=== PATIENT | male | born 1940 | race Caucasian/White ===

== ENCOUNTER 2021-11-29 18:14 | Emergency (ER) | payer MEDICARE, BC ==
[2021-11-29 19:04] LABS: ALT (SGPT) 8 U/L (8-55); AST (SGOT) 17 U/L (5-34); Albumin 4.1 g/dL (3.4-4.8); Alkaline Phosphatase 66 U/L (40-110); Anion Gap 15 mmol/L (10-20); BUN (Urea Nitrogen) 22 mg/dL (8.4-25.7); Bilirubin, Total 0.9 mg/dL (0.2-1.2); Calc. Creatinine Clearance 0 mL/min (70-130); Calcium 8.8 mg/dL (7.8-10.44); Carbon Dioxide 22 mmol/L (23-31); Chloride 104 mmol/L (98-107); Estimated GFR 55; Globulin 2.3 g/dL (2.4-3.5); Glucose 118 mg/dL (83-110); Potassium 4.4 mmol/L (3.5-5.1); Protein, Total 6.4 g/dL (5.8-8.1); Sodium 137 mmol/L (136-145)
[2021-11-29] MEDS ORDERED: cefTRIAXone\\ROCEPHIN 2 GM VIAL ONE (19:13)
[2021-11-29 19:28] LABS: Hemoglobin 13.1 g/dL (14.0-18.0); Mean Corpuscular HGB CONC 35.4 g/dL (32.0-36.0); Mean Corpuscular Hemoglobin 33.3 pg (27.0-31.0); Platelet Count 104 thou/uL (130-400); RBC Distribution Width 12.8 % (11.5-14.5); Red Blood Cell (RBC) Count 3.92 mill/uL (4.70-6.10); White Blood Cell (WBC) Count 9.1 thou/uL (4.8-10.8)
[2021-11-29 19:34] LABS: Band 3 % (5-11); Lymphocytes 5 % (21-51); MDiff Complete? YES; Monocytes 14 % (0-10); Neutrophil 78 % (42-75); Platelet Morphology Comment Appears Decreased; RBC Morphology Normal
[2021-11-29 19:44] LABS: Bilirubin Negative (Negative); Blood, Urine Trace (Negative); Clarity Clear (Clear); Glucose, Urine (Dipstick) Negative (Negative); Ketone, Urine Trace mg/dL (Negative); Leukocyte Small (Negative); Nitrite Negative (Negative); Protein, Urine (Dipstick) 30 mg/dL (Neg-Trace); Specific Gravity, Urine 1.025 (1.005-1.030); Urobilinogen 0.2 mg/dL (Less than 2); pH, Urine 5.5 (5.0-9.0)
[2021-11-29 19:46] LABS: Bacteria/HPF 1+ HPF (None Seen); Mucous/LPF 1+ LPF (<2+); RBC/HPF 0-3 HPF (0-3); Squamous Epithelial 0-3 HPF (0-3)
== END 2021-11-29 20:16 | disposition home or self-care (01) ==
LOC: BURERS 18:14
DX: J06.9 Acute upper respiratory infection, unspecified (principal); G20 Parkinson's disease; Z79.899 Other long term (current) drug therapy
CPT/HCPCS: 71045; 80053; 81003; 81015; 83605; 85025; 87040; 87086; 87149; 96365; J0696

== ENCOUNTER 2022-04-09 21:29 | Inpatient (IN) | payer MEDICARE, BC ==
[2022-04-09 22:10] LABS: #Basophils 0.1 thou/uL (0.0-0.2); #Lymphocytes 0.3 thou/uL (1.20-3.40); #Monocytes 0.6 thou/uL (0.11-0.59); #Neutrophils 4.5 thou/uL (1.40-6.50); %Eosinophils 0.3 % (0.0-10.0); %Lymphocytes 4.8 % (21.0-51.0); %Monocytes 11.4 % (0.0-10.0); %Neutrophils 82.6 % (42.0-75.0); Hemoglobin 11.8 g/dL (14.0-18.0); Mean Corpuscular HGB CONC 34.6 g/dL (32.0-36.0); Mean Corpuscular Hemoglobin 32.5 pg (27.0-31.0); Mean Corpuscular Volume 93.8 fl (78.0-98.0); Mean Platelet Volume 6.8 fL (7.4-10.4); Platelet Count 92 10x3/uL (130-400); RBC Distribution Width 12.7 % (11.5-14.5); Red Blood Cell (RBC) Count 3.62 mill/uL (4.70-6.10); White Blood Cell (WBC) Count 5.5 10x3/uL (4.8-10.8)
[2022-04-09] MEDS ORDERED: Ketorolac Tromethamine 30 MG/ML VIAL ONE (22:14)
[2022-04-09 22:17] LABS: ALT (SGPT) 8 U/L (8-55); AST (SGOT) 25 U/L (5-34); Albumin 3.7 g/dL (3.4-4.8); Alkaline Phosphatase 54 U/L (40-110); Anion Gap 15 mmol/L (10-20); BUN (Urea Nitrogen) 22 mg/dL (8.4-25.7); Calc. Creatinine Clearance 0 mL/min (70-130); Calcium 8.3 mg/dL (7.8-10.44); Carbon Dioxide 20 mmol/L (23-31); Chloride 106 mmol/L (98-107); Estimated GFR 54; Globulin 1.9 g/dL (2.4-3.5); Glucose 110 mg/dL (83-110); Potassium 3.7 mmol/L (3.5-5.1); Protein, Total 5.6 g/dL (5.8-8.1); Sodium 137 mmol/L (136-145)
[2022-04-09] MEDS ORDERED: Benzonatate 100 MG CAP ONE (22:58)
[2022-04-10 00:43] VITALS: BMI 31.5
[2022-04-10] MEDS ORDERED: Ondansetron ODT 4 MG TAB SL PRN (00:45)
[2022-04-10] MEDS ORDERED: Ondansetron PF 4 MG/2 ML Vial SLOW IVP PRN (00:45)
[2022-04-10] MEDS ORDERED: Calcium Carbonate 500 MG ChewTAB PO PRN (00:45)
[2022-04-10] MEDS ORDERED: Ketorolac Tromethamine 30 MG/ML VIAL IVP PRN (00:45)
[2022-04-10] MEDS ORDERED: Acetaminophen 650 MG Suppository PR PRN (00:45)
[2022-04-10] MEDS ORDERED: Senokot S 8.6-50 MG TAB PO PRN (00:45)
[2022-04-10] MEDS ORDERED: Benzonatate 100 MG CAP PO PRN ×2 (00:46→06:17)
[2022-04-10] MEDS ORDERED: Ketorolac Tromethamine 30 MG/ML VIAL ONE (04:32)
[2022-04-10 04:36] LABS: Platelet Morphology Comment Appears Decreased
[2022-04-10 06:07] LABS: SARS-CoV-2 NAA Rapid Test Not Detected (NotDetected)
[2022-04-10] MEDS ORDERED: Carbidopa/Levodopa 25-100 mg Tablet PO SCH ×2 (09:00→16:00)
[2022-04-10] MEDS ORDERED: Donepezil HCl 10 MG TAB PO SCH (09:00)
[2022-04-10] MEDS: Acetaminophen 325 MG TAB PO PRN ×2 (10:22→16:23)
[2022-04-10] MEDS: Guaifenesin DM 100-10/5 ML UDCUP PO PRN ×2 (10:36→20:04)
[2022-04-10] MEDS: Sodium Chloride 0.9% 1,000 ML IV SCH ×2 (11:08→16:00)
[2022-04-10] MEDS: Carbidopa/Levodopa 25-100 mg Tablet PO SCH ×2 (16:13→20:04)
[2022-04-10] MEDS: Oseltamivir 75 MG CAP PO SCH (20:04)
[2022-04-11] MEDS: Carbidopa/Levodopa CR 50-200 mg Tablet PO SCH (00:44)
[2022-04-11] MEDS: Rosuvastatin 10 MG TAB PO SCH (00:48)
[2022-04-11 05:50] LABS: Anion Gap 12 mmol/L (10-20); BUN (Urea Nitrogen) 17 mg/dL (8.4-25.7); Calc. Creatinine Clearance 83 mL/min (70-130); Calcium 8.4 mg/dL (7.8-10.44); Carbon Dioxide 23 mmol/L (23-31); Chloride 105 mmol/L (98-107); Estimated GFR 75; Glucose 91 mg/dL (83-110); Sodium 136 mmol/L (136-145)
[2022-04-11 06:07] LABS: Hemoglobin 12.1 g/dL (14.0-18.0); Mean Corpuscular HGB CONC 33.9 g/dL (32.0-36.0); Mean Corpuscular Hemoglobin 32.2 pg (27.0-31.0); Mean Corpuscular Volume 94.8 fl (78.0-98.0); Mean Platelet Volume 7.4 fL (7.4-10.4); Platelet Count 86 10x3/uL (130-400); RBC Distribution Width 12.7 % (11.5-14.5); Red Blood Cell (RBC) Count 3.75 mill/uL (4.70-6.10); White Blood Cell (WBC) Count 5.3 10x3/uL (4.8-10.8)
[2022-04-11] MEDS: Levothyroxine Sodium 50 MCG TAB PO SCH (06:16)
[2022-04-11 06:54] LABS: Band 14 % (5-11); Lymphocytes 15 % (21-51); MDiff Complete? YES; Monocytes 7 % (0-10); Neutrophil 64 % (42-75); RBC Morphology Normal
[2022-04-11] MEDS: Acetaminophen 325 MG TAB PO PRN ×3 (07:21→15:29)
[2022-04-11] MEDS: Carbidopa/Levodopa 25-100 mg Tablet PO SCH ×4 (07:22→20:24)
[2022-04-11] MEDS: Donepezil HCl 10 MG TAB PO SCH (08:30)
[2022-04-11] MEDS: Oseltamivir 75 MG CAP PO SCH ×2 (08:31→20:24)
[2022-04-11] MEDS ORDERED: Nystatin Cream 15 GM TUBE TOP SCH (09:15)
[2022-04-11] MEDS: Albuterol Sulfate 2.5 mg/3 ml Neb NEB SCH ×4 (09:26→22:35)
[2022-04-11] MEDS: Sodium Chloride 0.9% 1,000 ML IV SCH ×2 (11:25→17:49)
[2022-04-11] MEDS ORDERED: Enoxaparin Sodium 40 MG/0.4 ML SYRINGE SC SCH (11:30)
[2022-04-11] MEDS: Guaifenesin DM 100-10/5 ML UDCUP PO PRN (12:01)
[2022-04-11 13:31] LABS: Bilirubin Negative (Negative); Blood, Urine Negative (Negative); Clarity Clear (Clear); Glucose, Urine (Dipstick) Negative (Negative); Ketone, Urine 15 mg/dL (Negative); Leukocyte Trace (Negative); Nitrite Negative (Negative); Protein, Urine (Dipstick) 30 mg/dL (Neg-Trace); Urobilinogen 0.2 mg/dL (Less than 2); pH, Urine 5.5 (5.0-9.0)
[2022-04-11 14:05] LABS: RBC/HPF None Seen HPF (0-3); Squamous Epithelial None Seen HPF (0-3); WBC/HPF 0-3 HPF (0-3)
[2022-04-11 14:06] LABS: Bacteria/HPF 1+ HPF (None Seen); Urine Culture Reflex Yes Yes
[2022-04-11] MEDS: Nystatin Cream 15 GM TUBE TOP SCH (20:23)
[2022-04-12] MEDS: Carbidopa/Levodopa CR 50-200 mg Tablet PO SCH ×2 (00:20→23:36)
[2022-04-12] MEDS: Rosuvastatin 10 MG TAB PO SCH ×2 (00:20→23:35)
[2022-04-12] MEDS: Sodium Chloride 0.9% 1,000 ML IV SCH ×3 (00:27→13:59)
[2022-04-12] MEDS: Levothyroxine Sodium 50 MCG TAB PO SCH (05:16)
[2022-04-12] MEDS: Albuterol Sulfate 2.5 mg/3 ml Neb NEB SCH ×2 (05:16→09:32)
[2022-04-12] MEDS: Acetaminophen 325 MG TAB PO PRN ×2 (07:06→20:06)
[2022-04-12] MEDS: Carbidopa/Levodopa 25-100 mg Tablet PO SCH ×4 (07:09→20:07)
[2022-04-12] MEDS: Guaifenesin DM 100-10/5 ML UDCUP PO PRN (07:09)
[2022-04-12] MEDS: Donepezil HCl 10 MG TAB PO SCH (07:10)
[2022-04-12] MEDS: Oseltamivir 75 MG CAP PO SCH ×2 (09:17→20:06)
[2022-04-12] MEDS: Enoxaparin Sodium 40 MG/0.4 ML SYRINGE SC SCH (09:18)
[2022-04-12] MEDS: Nystatin Cream 15 GM TUBE TOP SCH ×2 (09:18→20:04)
[2022-04-12] MEDS ORDERED: Benzonatate 100 MG CAP PO PRN (13:35)
[2022-04-12] MEDS ORDERED: Oseltamivir 75 MG CAP ONE (19:58)
[2022-04-13] MEDS: Sodium Chloride 0.9% 1,000 ML IV SCH ×2 (00:02→09:27)
[2022-04-13 01:54] VITALS: BP 162/70; TEMP 98.7
[2022-04-13] MEDS: Levothyroxine Sodium 50 MCG TAB PO SCH (05:43)
[2022-04-13] MEDS: Acetaminophen 325 MG TAB PO PRN (05:47)
[2022-04-13] MEDS: Carbidopa/Levodopa 25-100 mg Tablet PO SCH ×2 (07:36→12:48)
[2022-04-13] MEDS: Donepezil HCl 10 MG TAB PO SCH (07:36)
[2022-04-13] MEDS ORDERED: Fluconazole 100 MG TAB PO SCH (09:00)
[2022-04-13] MEDS ORDERED: FLU VACC QS2022-23(65YR UP)/PF 240 MCG/0.7 ML SYRINGE IM ONE (09:00)
[2022-04-13] MEDS ORDERED: Oseltamivir 75 MG CAP ONE (09:18)
[2022-04-13] MEDS: Enoxaparin Sodium 40 MG/0.4 ML SYRINGE SC SCH (09:24)
[2022-04-13] MEDS: Oseltamivir 75 MG CAP PO SCH (09:24)
[2022-04-13] MEDS: Nystatin Cream 15 GM TUBE TOP SCH (09:25)
== END 2022-04-13 13:43 | disposition swing bed (61) | DRG 57 ==
LOC: BURERS 21:29 → OBSVTOIN 23:16 → INTOOBSV 23:16 → BURMED 23:16 → UNDOADMOB 23:16
PROVIDERS: ADMIT Family Medicine; ATTEND Nurse Practitioner
DX: G20 Parkinson's disease (principal); J10.1 Influenza due to other identified influenza virus with other respiratory manifestations; Z20.822 Contact with and (suspected) exposure to COVID-19; E86.0 Dehydration; I49.5 Sick sinus syndrome; B37.42 Candidal balanitis; Z91.041 Radiographic dye allergy status; Z79.899 Other long term (current) drug therapy; Z79.890 Hormone replacement therapy; Z95.0 Presence of cardiac pacemaker; Z85.820 Personal history of malignant melanoma of skin
CPT/HCPCS: 36415; 71045; 80048; 80053; 81001; 83605; 85025; 87086; 87804; 96374; J1650; J1885; J7050; J7611; J7620; U0002

== ENCOUNTER 2022-04-13 10:19 | Inpatient (IN) | payer MEDICARE, BC ==
[2022-04-13] MEDS ORDERED: Benzonatate 100 MG CAP PO PRN (15:51)
[2022-04-13] MEDS ORDERED: Calcium Carbonate 500 MG ChewTAB PO PRN (15:51)
[2022-04-13] MEDS ORDERED: Ondansetron ODT 4 MG TAB SL PRN (15:51)
[2022-04-13] MEDS ORDERED: Acetaminophen 650 MG Suppository PR PRN (15:51)
[2022-04-13] MEDS ORDERED: [UNRECOGNIZED DRUG - OTHER] IV SCH (16:00)
[2022-04-13] MEDS ORDERED: SODIUM CHLORIDE 0.9% IV SCH (16:00)
[2022-04-13] MEDS: Sodium Chloride 0.9% 1,000 ML IV SCH (16:40)
[2022-04-13] MEDS ORDERED: Carbidopa/Levodopa 25-100 mg Tablet PO SCH (17:00)
[2022-04-13 17:54] VITALS: BMI 31.4
[2022-04-13] MEDS: Carbidopa/Levodopa 25-100 mg Tablet PO SCH (20:18)
[2022-04-13] MEDS ORDERED: Carbidopa/Levodopa CR 50-200 mg Tablet PO SCH (21:00)
[2022-04-13] MEDS ORDERED: Oseltamivir 75 MG CAP PO SCH (21:00)
[2022-04-13] MEDS: Nystatin Cream 15 GM TUBE TOP SCH (21:25)
[2022-04-13] MEDS: Carbidopa/Levodopa CR 50-200 mg Tablet PO SCH (23:15)
[2022-04-14] MEDS: Sodium Chloride 0.9% 1,000 ML IV SCH (02:40)
[2022-04-14] MEDS: Acetaminophen 325 MG TAB PO PRN (04:46)
[2022-04-14 05:33] LABS: Anion Gap 12 mmol/L (10-20); BUN (Urea Nitrogen) 5 mg/dL (8.4-25.7); Carbon Dioxide 21 mmol/L (23-31); Potassium 3.9 mmol/L (3.5-5.1)
[2022-04-14 05:41] LABS: Hemoglobin 10.9 g/dL (14.0-18.0); Mean Corpuscular HGB CONC 35.7 g/dL (32.0-36.0); Mean Corpuscular Volume 92.4 fl (78.0-98.0); Mean Platelet Volume 7.2 fL (7.4-10.4); Platelet Count 94 10x3/uL (130-400); RBC Distribution Width 12.8 % (11.5-14.5); Red Blood Cell (RBC) Count 3.32 mill/uL (4.70-6.10); White Blood Cell (WBC) Count 2.9 10x3/uL (4.8-10.8)
[2022-04-14 06:32] LABS: Band 2 % (5-11); Eosinophils 1 % (0-10); Lymphocytes 27 % (21-51); MDiff Complete? YES; Monocytes 9 % (0-10); Neutrophil 59 % (42-75); Platelet Morphology Comment Appears Decreased; RBC Morphology Normal; Reactive Lymphocytes 2 % (0-10)
[2022-04-14 06:45] LABS: Calc. Creatinine Clearance 107 mL/min (70-130); Chloride 109 mmol/L (98-107); Estimated GFR 90; Glucose 110 mg/dL (83-110); Sodium 138 mmol/L (136-145)
[2022-04-14] MEDS: Carbidopa/Levodopa 25-100 mg Tablet PO SCH ×4 (07:55→20:32)
[2022-04-14] MEDS: Donepezil HCl 10 MG TAB PO SCH (07:55)
[2022-04-14] MEDS: Rosuvastatin 10 MG TAB PO SCH (09:50)
[2022-04-14] MEDS: Senokot S 8.6-50 MG TAB PO PRN (09:50)
[2022-04-14] MEDS: Levothyroxine Sodium 50 MCG TAB PO SCH (09:50)
[2022-04-14] MEDS: Enoxaparin Sodium 40 MG/0.4 ML SYRINGE SC SCH (09:50)
[2022-04-14] MEDS: Fluconazole 100 MG TAB PO SCH (09:50)
[2022-04-14] MEDS: Nystatin Cream 15 GM TUBE TOP SCH (09:51)
[2022-04-14] MEDS: Carbidopa/Levodopa CR 50-200 mg Tablet PO SCH (23:53)
[2022-04-15] MEDS: Acetaminophen 325 MG TAB PO PRN ×2 (00:01→11:20)
[2022-04-15] MEDS: Nystatin Cream 15 GM TUBE TOP SCH ×3 (00:04→21:20)
[2022-04-15 05:37] LABS: #Eosinphils 0.1 thou/uL (0.0-0.7); #Lymphocytes 0.7 thou/uL (1.20-3.40); #Monocytes 0.4 thou/uL (0.11-0.59); %Basophils 0.9 % (0.0-1.0); %Eosinophils 2.1 % (0.0-10.0); %Lymphocytes 22.4 % (21.0-51.0); %Monocytes 12.1 % (0.0-10.0); %Neutrophils 62.5 % (42.0-75.0); Hemoglobin 11.3 g/dL (14.0-18.0); Mean Corpuscular HGB CONC 34.6 g/dL (32.0-36.0); Mean Corpuscular Hemoglobin 32.1 pg (27.0-31.0); Mean Corpuscular Volume 92.8 fl (78.0-98.0); Mean Platelet Volume 7.4 fL (7.4-10.4); Platelet Count 111 10x3/uL (130-400); RBC Distribution Width 12.4 % (11.5-14.5); Red Blood Cell (RBC) Count 3.52 mill/uL (4.70-6.10); White Blood Cell (WBC) Count 3.2 10x3/uL (4.8-10.8)
[2022-04-15] MEDS: Carbidopa/Levodopa 25-100 mg Tablet PO SCH ×4 (10:25→21:20)
[2022-04-15] MEDS: Rosuvastatin 10 MG TAB PO SCH (10:27)
[2022-04-15] MEDS: Levothyroxine Sodium 50 MCG TAB PO SCH (10:35)
[2022-04-15] MEDS: Enoxaparin Sodium 40 MG/0.4 ML SYRINGE SC SCH (10:36)
[2022-04-15] MEDS: Donepezil HCl 10 MG TAB PO SCH (11:20)
[2022-04-15] MEDS: Fluconazole 100 MG TAB PO SCH (11:20)
[2022-04-15] MEDS: Carbidopa/Levodopa CR 50-200 mg Tablet PO SCH (21:20)
[2022-04-16] MEDS: Carbidopa/Levodopa CR 50-200 mg Tablet PO SCH (00:42)
[2022-04-16 05:27] LABS: #Eosinphils 0.1 thou/uL (0.0-0.7); #Lymphocytes 0.8 thou/uL (1.20-3.40); #Monocytes 0.5 thou/uL (0.11-0.59); #Neutrophils 2.5 thou/uL (1.40-6.50); %Basophils 1.2 % (0.0-1.0); %Eosinophils 2.4 % (0.0-10.0); %Monocytes 12.6 % (0.0-10.0); %Neutrophils 62.8 % (42.0-75.0); Hemoglobin 11.8 g/dL (14.0-18.0); Mean Corpuscular HGB CONC 34.2 g/dL (32.0-36.0); Mean Corpuscular Hemoglobin 31.9 pg (27.0-31.0); Mean Corpuscular Volume 93.2 fl (78.0-98.0); Mean Platelet Volume 6.8 fL (7.4-10.4); Platelet Count 159 10x3/uL (130-400); RBC Distribution Width 12.9 % (11.5-14.5); Red Blood Cell (RBC) Count 3.71 mill/uL (4.70-6.10); White Blood Cell (WBC) Count 3.9 10x3/uL (4.8-10.8)
[2022-04-16 05:54] LABS: Platelet Morphology Comment Appears Decreased
[2022-04-16] MEDS: Enoxaparin Sodium 40 MG/0.4 ML SYRINGE SC SCH (08:43)
[2022-04-16] MEDS: Donepezil HCl 10 MG TAB PO SCH (08:44)
[2022-04-16] MEDS: Levothyroxine Sodium 50 MCG TAB PO SCH (08:44)
[2022-04-16] MEDS: Carbidopa/Levodopa 25-100 mg Tablet PO SCH ×4 (08:45→20:43)
[2022-04-16] MEDS: Rosuvastatin 10 MG TAB PO SCH (08:46)
[2022-04-16] MEDS: Fluconazole 100 MG TAB PO SCH (08:47)
[2022-04-16] MEDS: Nystatin Cream 15 GM TUBE TOP SCH (08:56)
[2022-04-16] MEDS ORDERED: Nystatin Powder 15 GM BOT TOP SCH (14:30)
[2022-04-16] MEDS: Nystatin Powder 15 GM BOT TOP SCH (20:44)
[2022-04-17] MEDS: Carbidopa/Levodopa CR 50-200 mg Tablet PO SCH (00:01)
[2022-04-17] MEDS: Acetaminophen 325 MG TAB PO PRN ×2 (05:20→20:11)
[2022-04-17] MEDS: Rosuvastatin 10 MG TAB PO SCH (08:31)
[2022-04-17] MEDS: Levothyroxine Sodium 50 MCG TAB PO SCH (08:31)
[2022-04-17] MEDS: Carbidopa/Levodopa 25-100 mg Tablet PO SCH ×4 (08:36→20:11)
[2022-04-17] MEDS: Donepezil HCl 10 MG TAB PO SCH (08:37)
[2022-04-17] MEDS: Fluconazole 100 MG TAB PO SCH (08:37)
[2022-04-17] MEDS: Nystatin Powder 15 GM BOT TOP SCH ×2 (11:47→20:11)
[2022-04-18] MEDS: Carbidopa/Levodopa CR 50-200 mg Tablet PO SCH ×2 (00:05→23:38)
[2022-04-18] MEDS: Acetaminophen 325 MG TAB PO PRN (05:31)
[2022-04-18] MEDS: Fluconazole 100 MG TAB PO SCH (08:07)
[2022-04-18] MEDS: Rosuvastatin 10 MG TAB PO SCH (08:08)
[2022-04-18] MEDS: Donepezil HCl 10 MG TAB PO SCH (08:08)
[2022-04-18] MEDS: Carbidopa/Levodopa 25-100 mg Tablet PO SCH ×4 (08:09→19:59)
[2022-04-18] MEDS: Nystatin Powder 15 GM BOT TOP SCH ×2 (08:10→19:59)
[2022-04-18] MEDS: Levothyroxine Sodium 50 MCG TAB PO SCH (08:10)
[2022-04-19] MEDS: Acetaminophen 325 MG TAB PO PRN (04:49)
[2022-04-19] MEDS: Rosuvastatin 10 MG TAB PO SCH (08:26)
[2022-04-19] MEDS: Carbidopa/Levodopa 25-100 mg Tablet PO SCH ×4 (08:27→20:02)
[2022-04-19] MEDS: Levothyroxine Sodium 50 MCG TAB PO SCH (08:28)
[2022-04-19] MEDS: Fluconazole 100 MG TAB PO SCH (08:28)
[2022-04-19] MEDS: Nystatin Powder 15 GM BOT TOP SCH ×2 (08:28→20:02)
[2022-04-19] MEDS: Donepezil HCl 10 MG TAB PO SCH (08:28)
[2022-04-19] MEDS: Senokot S 8.6-50 MG TAB PO PRN (16:18)
[2022-04-19] MEDS: Carbidopa/Levodopa CR 50-200 mg Tablet PO SCH (23:47)
[2022-04-20] MEDS: Rosuvastatin 10 MG TAB PO SCH (08:25)
[2022-04-20] MEDS: Carbidopa/Levodopa 25-100 mg Tablet PO SCH ×3 (08:26→16:20)
[2022-04-20] MEDS: Levothyroxine Sodium 50 MCG TAB PO SCH (08:27)
[2022-04-20] MEDS: Donepezil HCl 10 MG TAB PO SCH (08:28)
[2022-04-20] MEDS: Fluconazole 100 MG TAB PO SCH (08:28)
[2022-04-20] MEDS: Nystatin Powder 15 GM BOT TOP SCH (08:29)
[2022-04-20 17:05] VITALS: BP 146/77; TEMP 98.1
== END 2022-04-20 18:26 | disposition home or self-care (01) | DRG 948 ==
LOC: BURMED 13:45
PROVIDERS: ADMIT Family Medicine; ATTEND Family Medicine
DX: R53.1 Weakness (principal); B37.42 Candidal balanitis; I95.1 Orthostatic hypotension; G20 Parkinson's disease; R53.81 Other malaise; D69.6 Thrombocytopenia, unspecified; R44.1 Visual hallucinations; R25.1 Tremor, unspecified; I49.5 Sick sinus syndrome; E87.70 Fluid overload, unspecified; Z20.822 Contact with and (suspected) exposure to COVID-19; J10.1 Influenza due to other identified influenza virus with other respiratory manifestations; Z79.899 Other long term (current) drug therapy; Z79.890 Hormone replacement therapy; Z91.041 Radiographic dye allergy status; Z95.0 Presence of cardiac pacemaker
CPT/HCPCS: 36415; 80048; 85025; J1650; J7050; J7620